=== PATIENT | female | born 1965 | race Caucasian/White ===

== ENCOUNTER 2016-08-25 19:16 | Emergency (ER) | payer SELFPAY ==
--- NOTE | 2016-08-25 21:33 | RAD ---
INDICATION: Left wrist injury. TECHNIQUE: 3 views of the left wrist were obtained. FINDINGS: The bones are in normal alignment. No fracture is seen. Joint spaces appear maintained. IMPRESSION: NO EVIDENCE FOR FRACTURE.
--- NOTE | 2016-08-25 21:39 | UC ---
Upper Extremity HPI - HPI Summary HPI Summary: At 1730 was at work in [employer] when a resident grabbed her L forearm and twisted the skin in opposite directions. Now has pain and bruising on arm; wants to go back to work, but wants to make sure she can do so. - History of Current Complaint Chief Complaint: UCUpperExtremity Stated Complaint: WRIST INJURY Time Seen by Provider: 08/25/16 21:10 Hx Obtained From: Patient Hx Last Menstrual Period: 2004 ?: No Onset/Duration: Sudden Onset Severity Initially: Moderate Severity Currently: Mild Character: Aching, Burning Aggravating Factor(s): Movement Alleviating Factor(s): Rest Associated Signs And Symptoms: Positive: Bruising Related History: Dominant Hand Right - Allergies/Home Medications Allergies/Adverse Reactions: Allergies Allergy/AdvReac Type Severity Reaction Status Date / Time Ibuprofen Allergy Nausea Verified 08/25/16 20:24 peaches Allergy Intermediate Hives Uncoded 08/25/16 20:24 PMH/Surg Hx/FS Hx/Imm Hx Endocrine History Of: Denies: Diabetes, Thyroid Disease Cardiovascular History Of: Denies: Cardiac Disorders, Hypertension Respiratory History Of: Denies: COPD, Asthma GI/ History Of: Denies: Ulcer - Surgical History Surgical History: Yes Surgery Procedure, Year, and Place: tubal ligation 1986. csection - 1986 - Family History Known Family History: Positive: Hypertension - Social History Occupation: Employed Full-time Alcohol Use: None Substance Use Type: None Smoking Status (MU): Former Smoker Length of Time of Smoking/Using Tobacco: 15 When Did the Patient Quit Smoking/Using Tobacco: 2016 Household Exposure Type: Cigarettes - Immunization History Most Recent Influenza Vaccination: denies Most Recent Tetanus Shot: may 2012 Review of Systems Constitutional: Negative Skin: Bruising Eyes: Negative ENT: Negative Respiratory: Negative Cardiovascular: Negative Gastrointestinal: Negative Genitourinary: Negative Motor: Negative Neurovascular: Negative Musculoskeletal: Myalgia Neurological: Negative Psychological: Negative All Other Systems Reviewed And Are Negative: Yes Physical Exam Triage Information Reviewed: Yes Appearance: Well-Appearing, Thin Vital Signs: Initial Vital Signs Temp 97.9 F 08/25/16 20:18 Pulse 65 08/25/16 20:18 Resp 18 08/25/16 20:18 BP 166/98 08/25/16 20:18 Pulse Ox 100 08/25/16 20:18 Vital Signs Reviewed: Yes Eye Exam: Normal Eyes: Positive: Conjunctiva Clear ENT Exam: Normal ENT: Positive: Normal ENT inspection, Hearing grossly normal, Pharynx normal, TMs normal Dental Exam: Other - edentulous Neck exam: Normal Respiratory Exam: Normal Respiratory: Positive: Chest non-tender, Lungs clear, Normal breath sounds, No respiratory distress, No accessory muscle use Cardiovascular Exam: Normal Cardiovascular: Positive: RRR, No Murmur Musculoskeletal: Positive: No Edema, 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 elevated blood pressure due to pain Discharge - Discharge Plan Condition: Stable Disposition: HOME Patient Education Materials: Crush Injury (ED) Forms: *Work Release Referrals: Charlie Tobar MD [Primary Care Provider] - Additional Instructions: I expect your L arm to be sore and bruised for about a week. Within a few days you should be completely back to full activities. If you have new or worsening symptoms, please come back here.
[2016-08-25 21:43] VITALS: BP 144/84
== END 2016-08-25 21:48 | disposition home or self-care (01) ==
LOC: UCEAST 19:16
DX: S57.82XA Crushing injury of left forearm, initial encounter (principal); R03.0 Elevated blood-pressure reading, without diagnosis of hypertension; W50.2XXA Accidental twist by another person, initial encounter; Z88.6 Allergy status to analgesic agent; Z87.891 Personal history of nicotine dependence
CPT/HCPCS: 99212; G0463